=== PATIENT | female | born 1965 | race Caucasian/White ===

== ENCOUNTER 2023-09-09 14:52 | Emergency (ER) | payer BC ==
[~2023-09-09] VITALS: Ht 165.1 cm; Wt 80.0 kg
[2023-09-09 14:56] VITALS: O2SAT 97
[2023-09-09 15:35] VITALS: BP 124/76; PULSE 82; RESP 16; TEMP 98.9
== END 2023-09-09 15:40 | disposition left against medical advice (07) ==
LOC: ER 14:52
DX: T17.908A Unspecified foreign body in respiratory tract, part unspecified causing other injury, initial encounter (principal); I10 Essential (primary) hypertension; G20.A1 Parkinson's disease without dyskinesia, without mention of fluctuations; Z98.890 Other specified postprocedural states; Z88.6 Allergy status to analgesic agent; Z88.5 Allergy status to narcotic agent; X58.XXXA Exposure to other specified factors, initial encounter; Y93.89 Activity, other specified; Y92.89 Other specified places as the place of occurrence of the external cause; Y99.8 Other external cause status
CPT/HCPCS: 99283; Z7610